=== PATIENT | male | born 1960 | race Caucasian/White ===

== ENCOUNTER 2018-05-12 07:23 | Day surgery (SDC) | payer OTHER ==
[2018-05-12] MEDS ORDERED: FENTAnyl 50 MCG/ML VIAL (09:23)
[2018-05-12] MEDS ORDERED: PROPOFOL 20 ML ×2 (09:23→10:08)
[2018-05-12] MEDS ORDERED: ONDANSETRON 4 MG INJ IV (09:30)
[2018-05-12] MEDS ORDERED: ALBUTEROL 0.083% (NEB) 2.5 MG/3 ML AMP HHN (09:30)
[2018-05-12] MEDS ORDERED: ACETAMINOPHEN 500 MG TAB PO (09:30)
[2018-05-12] MEDS ORDERED: FENTAnyl 50 MCG/ML VIAL IV (09:30)
== END 2018-05-12 11:44 | disposition home or self-care (01) ==
LOC: GIL 07:23
DX: Z12.11 Encounter for screening for malignant neoplasm of colon (principal); K22.70 Barrett's esophagus without dysplasia; K31.7 Polyp of stomach and duodenum; K20.8 Other esophagitis; K29.70 Gastritis, unspecified, without bleeding; K64.8 Other hemorrhoids; E78.5 Hyperlipidemia, unspecified; I10 Essential (primary) hypertension; E11.9 Type 2 diabetes mellitus without complications
CPT/HCPCS: 43239; 88305; 88312; 88313